=== PATIENT | male | born 1980 | race Caucasian/White ===

== ENCOUNTER 2018-07-25 00:28 | Emergency (ER) | payer OTHER ==
[~2018-07-25] VITALS: Ht 185.4 cm; Wt 79.4 kg
[2018-07-25] MEDS ORDERED: ALBU90OI INH (00:46)
[2018-07-25] MEDS ORDERED: Prednisone20 MG PO (02:16)
== END 2018-07-25 02:44 | disposition home or self-care (01) ==
LOC: ER 00:28
DX: J45.901 Unspecified asthma with (acute) exacerbation (principal); Z87.891 Personal history of nicotine dependence; Z79.51 Long term (current) use of inhaled steroids
CPT/HCPCS: 71045; 94640; 94644; 99285-25

== ENCOUNTER 2020-03-20 16:04 | Emergency (ER) | payer OTHER ==
[~2020-03-20] VITALS: Ht 177.8 cm; Wt 90.7 kg
[~2020-03-20 16:04] MED LIST: ALBU90OI INH; Prednisone20 MG PO
== END 2020-03-20 17:17 | disposition home or self-care (01) ==
LOC: ER 16:04
DX: F15.10 Other stimulant abuse, uncomplicated (principal); J45.909 Unspecified asthma, uncomplicated; F17.200 Nicotine dependence, unspecified, uncomplicated; Z79.51 Long term (current) use of inhaled steroids; Z91.14 Patient's other noncompliance with medication regimen
CPT/HCPCS: 99282